=== PATIENT | female | born 1940 | race Caucasian/White ===

== ENCOUNTER 2016-11-27 10:12 | Emergency (ER) | payer MEDICARE, OTHER ==
[2016-11-27] MEDS ORDERED: ONDANSETRON 4 MG TAB.RAPDIS PO ONE (10:22)
--- NOTE | 2016-11-27 10:31 | ER Document Report ---
ED General - General Chief Complaint: Pain With Urination Stated Complaint: URINARY SYMPTOMS TRAVEL OUTSIDE OF THE [place] IN LAST 30 DAYS: No - HPI Patient complains to provider of: painful urination Notes: Patient coming in for evaluation of painful urination. Patient states she doesn 't having some fevers. Patient and laboratory nontoxic looking upon evaluation the complains of mild nausea. Patient denies vomiting diarrhea denies any recent antibiotics. Patient has a history of Parkinson's disease. Patient looks nontoxic upon my evaluation. - Related Data Allergies/Adverse Reactions: ibuprofen [Ibuprofen] Allergy (Intermediate, Verified 11/27/16 10:21) Hives Past Medical History - Social History Smoking Status: Unknown if Ever Smoked Family History: Reviewed & Not Pertinent Patient has suicidal ideation: No Patient has homicidal ideation: No - Past Medical History Cardiac Medical History: Reports: Hx Coronary Artery Disease - high lipids, Hx Hypercholesterolemia Denies: Hx Heart Attack, Hx Hypertension Pulmonary Medical History: Reports: Hx Bronchitis, Hx Pneumonia Denies: Hx Asthma, Hx COPD, Hx Tuberculosis Neurological Medical History: Denies: Hx Cerebrovascular Accident, Hx Seizures Renal/ Medical History: Denies: Hx Peritoneal Dialysis GI Medical History: Denies: Hx Hepatitis, Hx Hiatal Hernia, Hx Ulcer Musculoskeltal Medical History: Reports Hx Arthritis Infectious Medical History: Denies: Hx Hepatitis Past Surgical History: Reports: Hx Appendectomy, Hx Hysterectomy. Denies: Hx Mastectomy, Hx Open Heart Surgery, Hx Pacemaker - Immunizations Hx Diphtheria, Pertussis, Tetanus Vaccination: Yes Hx Pneumococcal Vaccination: 08/22/08 Review of Systems - Review of Systems Constitutional: No symptoms reported EENT: No symptoms reported Cardiovascular: No symptoms reported Respiratory: No symptoms reported Gastrointestinal: No symptoms reported Genitourinary: Dysuria Female Genitourinary: No symptoms reported Musculoskeletal: No symptoms reported Skin: No symptoms reported Hematologic/Lymphatic: No symptoms reported Neurological/Psychological: No symptoms reported Physical Exam - Vital signs Vitals: Temp Pulse Resp BP Pulse Ox 97.5 F 76 20 106/61 96 11/27/16 10:18 11/27/16 10:18 11/27/16 10:18 11/27/16 10:18 11/27/16 10:18 Interpretation: Normal - General General appearance: Appears well, Alert - HEENT Head: Normocephalic, Atraumatic Eyes: Normal Pupils: PERRL - Respiratory Respiratory status: No respiratory distress Chest status: Nontender Breath sounds: Normal Chest palpation: Normal - Cardiovascular Rhythm: Regular Heart sounds: Normal auscultation Murmur: No - Abdominal Inspection: Normal Distension: No distension Bowel sounds: Normal Tenderness: Nontender Organomegaly: No organomegaly - Back Back: Normal, Nontender - Extremities General upper extremity: Normal inspection, Nontender, Normal color, Normal ROM , Normal temperature General lower extremity: Normal inspection, Nontender, Normal color, Normal ROM , Normal temperature, Normal weight bearing. No: Tres's sign - Neurological Neuro grossly intact: Yes Cognition: Normal Orientation: AAOx4 Quentin Coma Scale Eye Opening: Spontaneous Quentin Coma Scale Verbal: Oriented Breese Coma Scale Motor: Obeys Commands Breese Coma Scale Total: 15 Speech: Normal Motor strength normal: LUE, RUE, LLE, RLE Sensory: Normal - Psychological Associated symptoms: Normal affect, Normal mood - Skin Skin Temperature: Warm Skin Moisture: Dry Skin Color: Normal Course - Re-evaluation Re-evalutation: 11/27/16 10:31 Microbiology report 2 years ago and have been reviewed showing patient with Escherichia coli and enterococcus patient was discharged home Augmentin. Bacteria was susceptible to Augmentin more likely urinalysis does show infection will give the patient a shot of Rocephin will discharge home with Augmentin again. 11/27/16 10:31 11/27/16 11:53 - Vital Signs Vital signs: Temp Pulse Resp BP Pulse Ox 97.5 F 76 20 106/61 96 11/27/16 10:18 11/27/16 10:18 11/27/16 10:18 11/27/16 10:18 11/27/16 10:18 - Laboratory Laboratory results interpreted by me: 11/27/16 10:55 Urine Protein 30 H Urine Blood SMALL H Ur Leukocyte Esterase LARGE H Discharge - Discharge Clinical Impression: Urinary tract infection Qualifiers: Urinary tract infection type: acute cystitis Hematuria presence: with hematuria Qualified Code(s): N30.01 - Acute cystitis with hematuria Condition: Good Disposition: HOME, SELF-CARE Instructions: Urinary Tract Infection ([facility]) Additional Instructions: Your urinalysis does show signs of infection today. We will prescribe you an antibiotic. He did receive his injection of Rocephin. The Rocephin injection will treat your infection for the next 24 hours. I will give you a prescription for nausea medication. Please be sure to follow-up with your primary care physician. Your urinalysis will be sent for culture it'll take a proximal me 48 hours for the culture results to return. You may take Azo [id number] for the painful urination. Prescriptions: Amox Tr/Potassium Clavulanate [Augmentin 875-125 Tablet] 1 tab PO BID 10 Days Ondansetron [Zofran Odt 4 mg Tablet] 1 - 2 tab PO Q4H PRN #20 tab.rapdis PRN Reason: For Nausea/Vomiting
[2016-11-27 11:27] LABS: APPEARANCE,URINE TURBID; BILIRUBIN,URINE NEGATIVE (NEGATIVE); GLUCOSE, URINE NEGATIVE (NEGATIVE); KETONES,URINE NEGATIVE (NEGATIVE); LEUKOCYTE ESTERASE,URINE LARGE (NEGATIVE); NITRITE,URINE NEGATIVE (NEGATIVE); PROTEIN,URINE 30 mg/dL (NEGATIVE); URINE SPECIFIC GRAVITY 1.011; UROBILINOGEN,URINE NEGATIVE mg/dL (<2.0)
[2016-11-27] MEDS ORDERED: CEFTRIAXONE INJ 1000 MG VIAL IM ONE (11:46)
[2016-11-27] MEDS ORDERED: LIDOCAINE 1% INJ-PF (10 MG/ML) 30 ML SDV INFIL ONE (11:46)
[2016-11-27 12:21] VITALS: BP 97/57
== END 2016-11-27 12:24 | disposition home or self-care (01) ==
LOC: ER 10:12
DX: N30.01 Acute cystitis with hematuria (principal); R30.9 Painful micturition, unspecified; R11.0 Nausea
CPT/HCPCS: 99283; 96372; 87086; 87088; 81001; 87186; A9270; J3490; J0696; S0119

== ENCOUNTER 2017-02-04 15:40 | Emergency (ER) | payer MEDICARE, OTHER ==
--- NOTE | 2017-02-04 17:06 | ER Document Report ---
ED GI/ - General Chief Complaint: Urinary Frequency Stated Complaint: URINARY PAIN Time Seen by Provider: 02/04/17 17:02 Mode of Arrival: Wheelchair Information source: Patient TRAVEL OUTSIDE OF THE [place] IN LAST 30 DAYS: No - HPI Patient complains to provider of: Dysuria Onset: Other - 4 days Timing/Duration: Gradual, Persistent Quality of pain: Achy, Burning, Fullness, Pressure Severity at maximum: Moderate Severity in ED: Moderate Associated symptoms: Dysuria, Urinary frequency. denies: Fever, Loss of appetite, Vomiting Exacerbated by: Denies Relieved by: Denies Similar symptoms previously: Yes Recently seen / treated by doctor: No Notes: 02/04/17 18:08 Patient is a 76-year-old female who presents to the emergency room complaining of 4 day duration of dysuria with urinary frequency, denies fever chills, no cough, cold or congestion, no abdominal pain, no nausea, vomiting or diarrhea, history of urinary tract infection in the past with similar symptoms - Related Data Allergies/Adverse Reactions: ibuprofen [Ibuprofen] Allergy (Intermediate, Verified 02/04/17 15:45) Hives Past Medical History - General Information source: Patient - Social History Smoking Status: Never Smoker Family History: Reviewed & Not Pertinent Patient has suicidal ideation: No Patient has homicidal ideation: No - Past Medical History Cardiac Medical History: Reports: Hx Coronary Artery Disease - high lipids, Hx Hypercholesterolemia Denies: Hx Heart Attack, Hx Hypertension Pulmonary Medical History: Reports: Hx Bronchitis, Hx Pneumonia Denies: Hx Asthma, Hx COPD, Hx Tuberculosis Neurological Medical History: Denies: Hx Cerebrovascular Accident, Hx Seizures Renal/ Medical History: Denies: Hx Peritoneal Dialysis GI Medical History: Denies: Hx Hepatitis, Hx Hiatal Hernia, Hx Ulcer Musculoskeltal Medical History: Reports Hx Arthritis Infectious Medical History: Denies: Hx Hepatitis Past Surgical History: Reports: Hx Appendectomy, Hx Hysterectomy. Denies: Hx Mastectomy, Hx Open Heart Surgery, Hx Pacemaker - Immunizations Hx Diphtheria, Pertussis, Tetanus Vaccination: Yes Hx Pneumococcal Vaccination: 08/22/08 Review of Systems - Review of Systems Constitutional: No symptoms reported EENT: No symptoms reported Cardiovascular: No symptoms reported Respiratory: No symptoms reported Gastrointestinal: No symptoms reported Genitourinary: See HPI Female Genitourinary: No symptoms reported Musculoskeletal: No symptoms reported Skin: No symptoms reported Hematologic/Lymphatic: No symptoms reported Neurological/Psychological: No symptoms reported -: Yes All other systems reviewed and negative Physical Exam - Vital signs Vitals: Temp Pulse Resp BP Pulse Ox 98.1 F 88 20 152/76 H 96 02/04/17 15:45 02/04/17 15:45 02/04/17 15:45 02/04/17 15:45 02/04/17 15:45 Interpretation: Normal - General General appearance: Appears well, Alert - HEENT Head: Normocephalic, Atraumatic Eyes: Normal Pupils: PERRL - Respiratory Respiratory status: No respiratory distress Chest status: Nontender Breath sounds: Normal Chest palpation: Normal - Cardiovascular Rhythm: Regular Heart sounds: Normal auscultation Murmur: No - Abdominal Inspection: Normal Distension: No distension Bowel sounds: Normal Tenderness: Nontender Organomegaly: No organomegaly - Back Back: Normal, Nontender - Extremities General upper extremity: Normal inspection, Nontender, Normal color, Normal ROM , Normal temperature General lower extremity: Normal inspection, Nontender, Normal color, Normal ROM , Normal temperature, Normal weight bearing. No: Tres's sign - Neurological Neuro grossly intact: Yes Cognition: Normal Orientation: AAOx4 Guy Coma Scale Eye Opening: Spontaneous Quentin Coma Scale Verbal: Oriented Quentin Coma Scale Motor: Obeys Commands Guy Coma Scale Total: 15 Speech: Normal Motor strength normal: LUE, RUE, LLE, RLE Sensory: Normal - Psychological Associated symptoms: Normal affect, Normal mood - Skin Skin Temperature: Warm Skin Moisture: Dry Skin Color: Normal Course - Re-evaluation Re-evalutation: 02/04/17 18:09 Symptoms consistent with a urinary tract infection, urinalysis confirms this, she was started on Augmentin which is what her previous microbiology shows her urinary tract infection was susceptible to, she was advised to follow-up with a primary care provider or return if symptoms worsen, patient acknowledges understanding and agreement with this plan - Vital Signs Vital signs: Temp Pulse Resp BP Pulse Ox 98.1 F 88 20 152/76 H 96 02/04/17 15:45 02/04/17 15:45 02/04/17 15:45 02/04/17 15:45 02/04/17 15:45 - Laboratory Laboratory results interpreted by me: 02/04/17 17:10 Urine Protein 30 H Urine Blood SMALL H Urine Nitrite POSITIVE H Ur Leukocyte Esterase LARGE H Discharge - Discharge Clinical Impression: Urinary tract infection Qualifiers: Urinary tract infection type: site unspecified Hematuria presence: without hematuria Qualified Code(s): N39.0 - Urinary tract infection, site not specified Condition: Stable Disposition: HOME, SELF-CARE Instructions: Urinary Tract Infection ([facility]) Additional Instructions: Follow up with your primary care provider in one to 2 days. Return to the emergency room immediately if symptoms worsen or any additional concerns. Prescriptions: Amox Tr/Potassium Clavulanate [Augmentin 875-125 Tablet] 1 tab PO BID #20 tablet
[2017-02-04 17:51] LABS: APPEARANCE,URINE CLOUDY; BILIRUBIN,URINE NEGATIVE (NEGATIVE); GLUCOSE, URINE NEGATIVE (NEGATIVE); KETONES,URINE NEGATIVE (NEGATIVE); LEUKOCYTE ESTERASE,URINE LARGE (NEGATIVE); NITRITE,URINE POSITIVE (NEGATIVE); PROTEIN,URINE 30 mg/dL (NEGATIVE); URINE SPECIFIC GRAVITY 1.023; UROBILINOGEN,URINE NEGATIVE mg/dL (<2.0)
[2017-02-04] MEDS ORDERED: AMOXICILLIN TR/POT CLAVULANATE 500-125 MG TAB PO ONE (18:07)
[2017-02-04 18:22] VITALS: BP 161/79
== END 2017-02-04 18:19 | disposition home or self-care (01) ==
LOC: ER 15:40
DX: N39.0 Urinary tract infection, site not specified (principal); R35.0 Frequency of micturition; I25.10 Atherosclerotic heart disease of native coronary artery without angina pectoris; E78.00 Pure hypercholesterolemia, unspecified; Z90.710 Acquired absence of both cervix and uterus
CPT/HCPCS: 99283; 87086; 87088; 81001; 87186; A9270

== ENCOUNTER 2017-04-25 09:43 | Emergency (ER) | payer MEDICARE, OTHER ==
[2017-04-25] MEDS ORDERED: NORMAL SALINE 1000 ML 1,000 ML IV ONE ×2 (10:01→12:59)
--- NOTE | 2017-04-25 10:04 | ER Document Report ---
ED Medical Screen (RME) - General Chief Complaint: General Weakness Stated Complaint: LETHARGY Time Seen by Provider: 04/25/17 09:53 Notes: The patient is a 76-year-old female, past medical history Parkinson's, presents with 3 days of increasing confusion and decreased interaction with family. According to and daughter, patient also has a decubitus ulcer and not drinking much fluid. PE: tenting of skin, NAD, one word answers, AAOx2, slow to respond, RRR, Lungs CTAB I have greeted and performed a rapid initial assessment of this patient. A comprehensive ED assessment and evaluation of the patient, analysis of test results and completion of the medical decision making process will be conducted by additional ED providers. TRAVEL OUTSIDE OF THE [place] IN LAST 30 DAYS: No - Related Data Allergies/Adverse Reactions: ibuprofen [Ibuprofen] Allergy (Intermediate, Verified 04/25/17 09:55) Hives Past Medical History - Past Medical History Cardiac Medical History: Reports: Hx Coronary Artery Disease - high lipids, Hx Hypercholesterolemia Denies: Hx Heart Attack, Hx Hypertension Pulmonary Medical History: Reports: Hx Bronchitis, Hx Pneumonia Denies: Hx Asthma, Hx COPD, Hx Tuberculosis Neurological Medical History: Denies: Hx Cerebrovascular Accident, Hx Seizures Renal/ Medical History: Denies: Hx Peritoneal Dialysis GI Medical History: Denies: Hx Hepatitis, Hx Hiatal Hernia, Hx Ulcer Musculoskeltal Medical History: Reports Hx Arthritis Infectious Medical History: Denies: Hx Hepatitis Past Surgical History: Reports: Hx Appendectomy, Hx Hysterectomy. Denies: Hx Mastectomy, Hx Open Heart Surgery, Hx Pacemaker - Immunizations Hx Diphtheria, Pertussis, Tetanus Vaccination: Yes Physical Exam - Vital signs Vitals: Temp Pulse Resp BP Pulse Ox 99.2 F 92 18 136/71 H 97 04/25/17 09:46 04/25/17 09:46 04/25/17 09:46 04/25/17 09:46 04/25/17 09:46 Course - Vital Signs Vital signs: Temp Pulse Resp BP Pulse Ox 99.2 F 92 18 136/71 H 97 04/25/17 09:46 04/25/17 09:46 04/25/17 09:46 04/25/17 09:46 04/25/17 09:46
--- NOTE | 2017-04-25 10:54 | ER Document Report ---
ED General - General Chief Complaint: General Weakness Stated Complaint: LETHARGY Time Seen by Provider: 04/25/17 09:53 TRAVEL OUTSIDE OF THE [place] IN LAST 30 DAYS: No - HPI Notes: Patient is a 76-year-old female with a history of Parkinson's, patella fracture , C. difficile, hypertension complaining of who presents the ED with spouse and daughter fatigue, decreased appetite, decreased fluid intake, general weakness, and some behavioral change x3 days. Spouse states that patient is usually ambulatory, but the last time she was ambulatory was Tuesday night. She ate half of a meal last evening. Daughter states that her speech is normally soft. They have not noticed any changes in her speech, vision, or mentation otherwise. Pt has not been active as usual. Daughter states that she does have a h/o UTI's, but is usually able to treat them at home. Pt has a h/o intermittent hallucinations, and spouse denies any acute changes in the last few days. Pt denies any acute pain or discomfort aside from her left patella. Denies any headache, fever, head injury, neck pain, changes in vision/speech/ mentation/hearing, URI, sore throat, chest pain, palpitations, syncope, cough, shortness of breath, wheeze, dyspnea, abdominal pain, nausea/vomiting/diarrhea, urinary retention, dysuria, hematuria, loss of control of bowel or bladder, numbness/tingling, saddle anesthesia, muscle paralysis/weakness, or rash. Spouse/daughter to states that she has an ulcer to her left buttock that they would like looked at. They have not noticed any streaks or purulent discharge. - Related Data Allergies/Adverse Reactions: ibuprofen [Ibuprofen] Allergy (Intermediate, Verified 04/25/17 09:55) Hives Past Medical History - General Information source: Patient, Relative - Social History Smoking Status: Unknown if Ever Smoked Family History: Reviewed & Not Pertinent Patient has suicidal ideation: No Patient has homicidal ideation: No - Past Medical History Cardiac Medical History: Reports: Hx Coronary Artery Disease - high lipids, Hx Hypercholesterolemia Denies: Hx Heart Attack, Hx Hypertension Pulmonary Medical History: Reports: Hx Bronchitis, Hx Pneumonia Denies: Hx Asthma, Hx COPD, Hx Tuberculosis Neurological Medical History: Denies: Hx Cerebrovascular Accident, Hx Seizures Renal/ Medical History: Denies: Hx Peritoneal Dialysis GI Medical History: Denies: Hx Hepatitis, Hx Hiatal Hernia, Hx Ulcer Musculoskeltal Medical History: Reports Hx Arthritis Infectious Medical History: Denies: Hx Hepatitis Past Surgical History: Reports: Hx Appendectomy, Hx Hysterectomy. Denies: Hx Mastectomy, Hx Open Heart Surgery, Hx Pacemaker - Immunizations Hx Diphtheria, Pertussis, Tetanus Vaccination: Yes Hx Pneumococcal Vaccination: 08/22/08 Review of Systems - Review of Systems Notes: REVIEW OF SYSTEMS: CONSTITUTIONAL : see hpi. Denies fever, chills, or sweats. Denies recent illness. EENT: Denies eye, ear, throat, or mouth pain or symptoms. Denies nasal or sinus congestion or discharge. Denies throat, tongue, or mouth swelling or difficulty swallowing. CARDIOVASCULAR: Denies chest pain. Denies palpitations or racing or irregular heart beat. Denies ankle edema. RESPIRATORY: Denies cough, cold, or chest congestion. Denies shortness of breath, difficulty breathing, or wheezing. GASTROINTESTINAL: Denies abdominal pain or distention. Denies nausea, vomiting , or diarrhea. Denies blood in vomitus, stools, or per rectum. Denies black, tarry stools. Denies constipation. GENITOURINARY: Denies difficulty urinating, painful urination, burning, frequency, blood in urine, or discharge. MUSCULOSKELETAL: see hpi SKIN: see hpi NEUROLOGICAL: Denies confusion or altered mental status. Denies passing out or loss of consciousness. Denies dizziness or lightheadedness. Denies headache. Denies weakness or paralysis or loss of use of either side. Denies problems with gait or speech. Denies sensory loss, numbness, or tingling. Denies seizures. PSYCHIATRIC: Denies anxiety or stress. Denies depression, suicidal ideation, or homicidal ideation. ALL OTHER SYSTEMS REVIEWED AND NEGATIVE. Dictation was performed using [employer] voice recognition software Physical Exam - Vital signs Vitals: Temp Pulse Resp BP Pulse Ox 99.2 F 92 18 136/71 H 97 04/25/17 09:46 04/25/17 09:46 04/25/17 09:46 04/25/17 09:46 04/25/17 09:46 Notes: PHYSICAL EXAMINATION: GENERAL: Well-appearing, well-nourished and in no acute distress. A&Ox3. Pt responsive, communicative, coherent. Pt did also invoke sarcasm/wit to one of her responses and she smiled thereafter. HEAD: Atraumatic, normocephalic. EYES: Pupils equal round and reactive to light, extraocular movements intact, sclera anicteric, conjunctiva are normal. ENT: EAC clear b/l. TM's intact b/l without erythema, fluid, or perforation. Nares patent and without discharge. oropharynx clear without exudates. No tonsilar hypertrophy or erythema. Moist mucous membranes. No sinus tenderness. NECK: Normal range of motion, supple without lymphadenopathy. No rigidity/ meningismus/tenderness. LUNGS: Breath sounds clear to auscultation bilaterally and equal. No wheezes rales or rhonchi. HEART: Regular rate and rhythm without murmurs, rubs, gallops. ABDOMEN: Soft, nontender, nondistended abdomen. No guarding, no rebound. No masses appreciated. Normal bowel sounds present. No CVA tenderness bilaterally. Musculoskeletal: Ext b/l: LROM to passive/active at the knee. + tenderness to left patella (current recovery from fx). Strength 5+/5 bilaterally. Extremities: No cyanosis, clubbing, or edema b/l. Peripheral pulses 2+ b/l. Capillary refill less than 3 seconds. NEUROLOGICAL: MMSE intact. Cranial nerves grossly intact. Normal speech. Normal sensory, motor exams. Reflexes 2+ b/l. NAIN's negative. Pronator drift negative. Heel/gardner, finger/nose wnl. PSYCH: Normal mood, normal affect. SKIN: + mild turgor noted. + early decubitus ulceration (stage1-2) to left buttock. No streaks, abscess, or purulent discharge. Course - Re-evaluation Re-evalutation: 04/25/17 14:[address] Roy who is in agreement with discharge/plan: Patient is an afebrile, well-hydrated, 76-year-old female who presents to the ED with general weakness, mild dehydration, and early decubitus ulcer. Vitals are stable. PE otherwise unremarkable for any focal neurological deficits. Mini-Mental status exam was intact. NIH was negative. CT scan of the head and CXR were unremarkable for any acute pathology. CBC, CMP, cardiac enzymes, urinalysis was unremarkable for any acute pathology. Patient is tolerating p.o. intake. Low heart score. Low suspicion for any acute glaucoma, temporal arteritis, meningitis, intracranial hemorrhage, ischemic stroke, ACS, PE, pneumothorax, pericarditis, dissection, or fracture at this time. Patient/ spouse/daughter are aware that her condition can change from initial presentation and that they need to monitor symptoms closely for any acute changes. 2L NS given today. No new concerns or complaints. Pt is feeling better than when she arrived. Conservative measures for symptoms. Recheck with your PCM in 2-3 days. Return to the ED with any worsening/concerning symptoms otherwise as reviewed in discharge. Family/patient are in agreement. - Vital Signs Vital signs: Temp Pulse Resp BP Pulse Ox 99.2 F 92 18 136/71 H 97 04/25/17 09:46 04/25/17 09:46 04/25/17 09:46 04/25/17 09:46 04/25/17 09:46 - Laboratory Result Diagrams: 04/25/17 11:00 04/25/17 11:00 Laboratory results interpreted by me: 04/25/17 04/25/17 04/25/17 11:00 11:00 11:44 MCV 98 H MCH 33.9 H RDW 14.2 H Monocytes % 13.6 H BUN 34 H Est GFR (Non-Af Amer) 51 L Direct Bilirubin 0.5 H AST 58 H Creatine Kinase 2390 H Urine Protein 30 H Urine Ketones 20 H Urine Blood MODERATE H Acetaminophen < 10 L Discharge - Discharge Clinical Impression: Generalized weakness, Mild dehydration Decubitus ulcer Qualifiers: Pressure ulcer location: buttock Pressure ulcer stage: stage 1 Laterality: left Qualified Code(s): L89.321 - Pressure ulcer of left buttock, stage 1 Condition: Stable Disposition: HOME, SELF-CARE Instructions: Decubitus Ulcer ([facility]), Weakness ([facility]), Follow-Up Care ([facility]) Additional Instructions: Push fluids Maintain adequate fluid and food intake Take home medications as directed Wound management as reviewed Monitor for any worsening symptoms or signs Recheck with your PCM in 2-3 days Return to the ED with any worsening symptoms and/or development of fever, headache, URI, facial droop, changes in behavior/mentation/speech/vision/hearing /balance, chest pain, palpitations, syncope, shortness of breath, trouble breathing, abdominal pain, n/v/d, blood in stool/urine, urinary retention, muscle weakness/paralysis, numbness/tingling, or other worsening symptoms that are concerning to you. Forms: Elevated Blood Pressure Referrals: MANAV LEAHY MD [Primary Care Provider] - 04/27/17
[2017-04-25 11:21] LABS: ABSOLUTE LYMPHOCYTES (AUTO) 0.8 10^3/uL (0.5-4.7); ABSOLUTE MONOCYTES (AUTO) 0.8 10^3/uL (0.1-1.4); ABSOLUTE NEUT (AUTO) 4.3 10^3/uL (1.7-8.2); BASOPHILS % (AUTO) 0.5 % (0-2); EOSINOPHILS % (AUTO) 0.1 % (0-6); HEMATOCRIT 38.8 % (36.0-47.0); HEMOGLOBIN 13.5 g/dL (12.0-15.5); HGB HCT DIFFERENCE 1.7; LYMPHOCYTES % (AUTO) 14.2 % (13-45); MEAN CORPUSCULAR HEMOGLOBIN 33.9 pg (27.0-33.4); MEAN CORPUSCULAR HGB CONC 34.7 g/dL (32.0-36.0); MEAN CORPUSCULAR VOLUME 98 fl (80-97); MONOCYTES % (AUTO) 13.6 % (3-13); RED BLOOD COUNT 3.97 10^6/uL (3.72-5.28); RED CELL DISTRIBUTION WIDTH 14.2 % (11.5-14.0); SEGMENTED NEUTROPHILS % (AUTO) 71.6 % (42-78); WHITE BLOOD COUNT 5.9 10^3/uL (4.0-10.5)
--- NOTE | 2017-04-25 11:28 | RADIOLOGY REPORT (SQ) ---
EXAM DESCRIPTION: CT HEAD WITHOUT COMPLETED DATE/TIME: 04/25/2017 11:16 am REASON FOR STUDY: AMS COMPARISON: 09/04/2012 TECHNIQUE: Axial images acquired through the brain without intravenous contrast. Images reviewed wi th bone, brain and subdural windows. Images stored on PACS. All CT scanners at this facility use dose modulation, iterative reconstruction, and/or weight based d osing when appropriate to reduce radiation dose to as low as reasonably achievable (ALARA). [facility]: Dose Right [facility]: CareDose [facility]: Dose Right [facility]: Teradose 4D [facility]: Smart LendPro RADIATION DOSE: Up-to-date CT equipment and radiation dose reduction techniques were employed. CTDIv ol: 28.0 mGy. DLP: 504 mGy-cm.mGy. LIMITATIONS: None. FINDINGS: VENTRICLES: Prominent. CEREBRUM: No masses. No hemorrhage. No midline shift. Areas of low density in the white matter mos t likely due to chronic micro-vascular ischemic change. No evidence for acute infarction. CEREBELLUM: No masses. No hemorrhage. No alteration of density. No evidence for acute infarction. EXTRAAXIAL SPACES: Age-related involutional change. No fluid collections. No masses. ORBITS AND GLOBE: No intra- or extraconal masses. Normal contour of globe without masses. CALVARIUM: No fracture. PARANASAL SINUSES: No fluid or mucosal thickening. SOFT TISSUES: No mass or hematoma. OTHER: No other significant finding. IMPRESSION: CHRONIC CHANGES OF ATROPHY AND MICROVASCULAR ISCHEMIA. NO ACUTE PROCESS. TECHNICAL DOCUMENTATION: JOB ID: [id number] Quality ID # [id number]: Final reports with documentation of one or more dose reduction techniques (e.g., Au tomated exposure control, adjustment of the mA and/or kV according to patient size, use of iterative reconstruction technique) 2010 [employer]- All Rights Reserved
--- NOTE | 2017-04-25 11:30 | RADIOLOGY REPORT (SQ) ---
EXAM DESCRIPTION: CHEST SINGLE VIEW COMPLETED DATE/TIME: 04/25/2017 11:21 am REASON FOR STUDY: cough COMPARISON: 12/17/2012 EXAM PARAMETERS: NUMBER OF VIEWS: One view. TECHNIQUE: Single frontal radiographic view of the chest acquired. RADIATION DOSE: NA LIMITATIONS: None. FINDINGS: LUNGS AND PLEURA: No opacities, masses or pneumothorax. No pleural effusion. MEDIASTINUM AND HILAR STRUCTURES: No masses. Contour normal. HEART AND VASCULAR STRUCTURES: Heart normal in size. Normal vasculature. BONES: No acute findings. HARDWARE: None in the chest. OTHER: No other significant finding. IMPRESSION: NO ACUTE RADIOGRAPHIC FINDING IN THE CHEST. TECHNICAL DOCUMENTATION: JOB ID: [id number]
[2017-04-25 11:35] LABS: ALANINE AMINOTRANSFERASE 23 U/L (9-52); ALBUMIN 4.5 g/dL (3.5-5.0); ALKALINE PHOSPHATASE 79 U/L (38-126); ANION GAP 14 (5-19); ASPARTATE AMINO TRANSFERASE 58 U/L (14-36); BILIRUBIN,DIRECT 0.5 mg/dL (0.0-0.4); BILIRUBIN,TOTAL 0.7 mg/dL (0.2-1.3); BLOOD UREA NITROGEN 34 mg/dL (7-20); CALCIUM 9.9 mg/dL (8.4-10.2); CARBON DIOXIDE 24 mmol/L (22-30); CHLORIDE 105 mmol/L (98-107); CREATININE RESULT 1.04 mg/dL (0.52-1.25); GLUCOSE 95 mg/dL (75-110); LIPASE 36.5 U/L (23-300); SODIUM 142.9 mmol/L (137-145); TOTAL PROTEIN 7.6 g/dL (6.3-8.2)
[2017-04-25 11:43] LABS: CREATINE KINASE 2390 U/L (30-135)
[2017-04-25 11:44] LABS: TROPONIN I < 0.012 ng/mL
[2017-04-25 12:06] LABS: APPEARANCE,URINE CLEAR; BILIRUBIN,URINE NEGATIVE (NEGATIVE); GLUCOSE, URINE NEGATIVE (NEGATIVE); KETONES,URINE 20 mg/dL (NEGATIVE); LEUKOCYTE ESTERASE,URINE NEGATIVE (NEGATIVE); NITRITE,URINE NEGATIVE (NEGATIVE); PROTEIN,URINE 30 mg/dL (NEGATIVE); URINE SPECIFIC GRAVITY 1.023; UROBILINOGEN,URINE NEGATIVE mg/dL (<2.0)
--- NOTE | 2017-04-25 12:54 | EKG REPORT ---
SEVERITY:- NORMAL ECG - SINUS RHYTHM : Confirmed by: Thomas Grimes MD 25-Apr-2017 12:53:47
[2017-04-25 14:42] VITALS: BP 153/68
== END 2017-04-25 14:42 | disposition home or self-care (01) ==
LOC: ER 09:43
DX: R53.1 Weakness (principal); E86.0 Dehydration; R53.83 Other fatigue; R63.0 Anorexia; L89.321 Pressure ulcer of left buttock, stage 1; I10 Essential (primary) hypertension; I25.10 Atherosclerotic heart disease of native coronary artery without angina pectoris; G20 Parkinson's disease; Z88.6 Allergy status to analgesic agent; Z87.440 Personal history of urinary (tract) infections
CPT/HCPCS: 93005; 99285; 96360; 96361; 51701; 36415; 82550; 83690; 80307; 85025; 80053; 81001; 84484; 83880; 71010; 70450; 93010; J7030

== ENCOUNTER 2018-02-27 10:50 | Emergency (ER) | payer MEDICARE, OTHER ==
--- NOTE | 2018-02-27 11:16 | ER Document Report ---
ED General - General Chief Complaint: Pain With Urination Stated Complaint: URINARY ISSUES Time Seen by Provider: 02/27/18 11:10 Notes: 77-year-old female here with complaints of burning with urination ongoing for the past 2 days. She has not had any abdominal back flank pain fevers chills nausea vomiting. She has been drinking cranberry juice and has increased her water intake in an attempt to treat herself at home with minimal relief of the symptoms. She has a long-standing history of UTIs every month and pyelonephritis several times per year. TRAVEL OUTSIDE OF THE [place] IN LAST 30 DAYS: No - Related Data Allergies/Adverse Reactions: ibuprofen [Ibuprofen] Allergy (Intermediate, Verified 02/27/18 10:51) Hives Past Medical History - Social History Smoking Status: Never Smoker Frequency of alcohol use: Rare Drug Abuse: None Family History: Reviewed & Not Pertinent Patient has suicidal ideation: No Patient has homicidal ideation: No - Past Medical History Cardiac Medical History: Reports: Hx Coronary Artery Disease - high lipids, Hx Hypercholesterolemia Denies: Hx Heart Attack, Hx Hypertension Pulmonary Medical History: Reports: Hx Bronchitis, Hx Pneumonia Denies: Hx Asthma, Hx COPD, Hx Tuberculosis Neurological Medical History: Denies: Hx Cerebrovascular Accident, Hx Seizures Renal/ Medical History: Denies: Hx Peritoneal Dialysis GI Medical History: Denies: Hx Hepatitis, Hx Hiatal Hernia, Hx Ulcer Musculoskeltal Medical History: Reports Hx Arthritis Infectious Medical History: Denies: Hx Hepatitis Past Surgical History: Reports: Hx Appendectomy, Hx Hysterectomy. Denies: Hx Mastectomy, Hx Open Heart Surgery, Hx Pacemaker - Immunizations Hx Diphtheria, Pertussis, Tetanus Vaccination: Yes Hx Pneumococcal Vaccination: 08/22/08 Review of Systems - Review of Systems Notes: See history of present illness for pertinent positive review of systems; otherwise all review of systems have been reviewed and are negative Physical Exam - Vital signs Vitals: Temp Pulse Resp BP Pulse Ox 98.1 F 77 16 147/76 H 100 02/27/18 10:56 02/27/18 10:56 02/27/18 10:56 02/27/18 10:56 02/27/18 10:56 - Notes Notes: PHYSICAL EXAMINATION: GENERAL: Well-appearing and in no acute distress. HEAD: Atraumatic, normocephalic. EYES: Pupils equal round and reactive to light, extraocular movements intact, sclera anicteric, conjunctiva are normal. ENT: nares patent, oropharynx clear without exudates. Moist mucous membranes. NECK: Normal range of motion, supple without lymphadenopathy LUNGS: CTAB and equal. No wheezes rales or rhonchi. HEART: Regular rate and rhythm without murmurs ABDOMEN: Soft, no tenderness. No facial grimacing/wincing upon palpation. No guarding, no rebound. EXTREMITIES: Normal range of motion, no pitting edema. No cyanosis. NEUROLOGICAL: Cranial nerves grossly intact. Normal sensory/motor exams. PSYCH: Normal mood, normal affect. SKIN: Warm, Dry, normal turgor, no rashes or lesions noted Course - Re-evaluation Re-evalutation: 02/27/18 12:11 MEDICAL DECISION MAKING: Concern for UTI Urinalysis reviewed and there are findings concerning for UTI Will give a dose of Bactrim here and prescription for Bactrim Instructed follow-up PCP next day or few Patient understands and agrees to the plan of care - Vital Signs Vital signs: Temp Pulse Resp BP Pulse Ox 98.1 F 77 16 147/76 H 100 02/27/18 10:56 02/27/18 10:56 02/27/18 10:56 02/27/18 10:56 02/27/18 10:56 - Laboratory Laboratory results interpreted by me: 02/27/18 11:15 Urine Protein 30 H Urine Blood SMALL H Urine Nitrite POSITIVE H Ur Leukocyte Esterase LARGE H Discharge - Discharge Clinical Impression: Dysuria Condition: Good Disposition: HOME, SELF-CARE Additional Instructions: You were seen in the emergency department at [facility]. Finish the antibiotics and do not skip any doses. Use the Pyridium for pain control. Please followup with your primary physician in the next few days for further management/evaluation. Please return to the emergency department for worsening of symptoms or any symptom that you deem to be concerning or life-threatening. Thank you for allowing us to be part of your care. Prescriptions: Phenazopyridine HCl [Pyridium 100 Mg Tablet] 100 mg PO BID #20 tablet Sulfamethoxazole/Trimethoprim [Bactrim Ds Tablet] 1 each PO BID #20 tablet Referrals: DYANA JI MD [Primary Care Provider] - Follow up as needed
[2018-02-27 11:56] LABS: APPEARANCE,URINE TURBID; BILIRUBIN,URINE NEGATIVE (NEGATIVE); COLOR,URINE YELLOW; GLUCOSE, URINE NEGATIVE (NEGATIVE); KETONES,URINE NEGATIVE (NEGATIVE); LEUKOCYTE ESTERASE,URINE LARGE (NEGATIVE); NITRITE,URINE POSITIVE (NEGATIVE); PROTEIN,URINE 30 mg/dL (NEGATIVE); URINE SPECIFIC GRAVITY 1.015; UROBILINOGEN,URINE NEGATIVE mg/dL (<2.0)
[2018-02-27] MEDS ORDERED: SULFAMETHOXAZOLE/TRIMETHOPRIM 800-160 MG TABLET PO ONE (12:01)
[2018-02-27] MEDS ORDERED: PHENAZOPYRIDINE HCL 100 MG TABLET PO ONE (12:13)
[2018-02-27 12:18] VITALS: BP 114/59
== END 2018-02-27 12:12 | disposition home or self-care (01) ==
LOC: ER 10:50
DX: R30.0 Dysuria (principal); I25.10 Atherosclerotic heart disease of native coronary artery without angina pectoris
CPT/HCPCS: 99283; 87086; 87088; 81001; 87186; A9270 ×2; J3490